=== PATIENT | female | born 2000 | race Two or more races ===

== ENCOUNTER 2020-07-15 16:10 | Emergency (ER) | payer OTHER ==
[~2020-07-15] VITALS: Ht 157.5 cm; Wt 52.2 kg
[2020-07-15] MEDS ORDERED: AMOX1TAB5 PO (17:23)
== END 2020-07-15 17:29 | disposition home or self-care (01) ==
LOC: EMR PED 16:10
DX: J02.9 Acute pharyngitis, unspecified (principal)